=== PATIENT | male | born 1965 | race Caucasian/White ===

== ENCOUNTER 2019-01-04 22:23 | Observation (INO) | payer MEDICARE ==
[2019-01-05 02:17] LABS: Troponin I Less than 0.010 ng/mL (< 0.028)
[2019-01-05 04:14] VITALS: BMI 31.4
[2019-01-05] MEDS ORDERED: Sodium Chloride 0.9% 1,000 ML IV SCH (04:24)
[2019-01-05] MEDS ORDERED: Acetaminophen 325 MG TAB PO PRN ×2 (04:24→07:40)
[2019-01-05] MEDS ORDERED: Ondansetron ODT 4 MG TAB SL PRN (04:24)
[2019-01-05] MEDS ORDERED: Ondansetron PF 4 MG/2 ML Vial IVP PRN (04:24)
[2019-01-05] MEDS ORDERED: Ondansetron ODT 4 MG TAB PO PRN (07:40)
[2019-01-05] MEDS ORDERED: Zolpidem Tartrate 5 MG TAB PO PRN (07:40)
[2019-01-05 08:00] LABS: #Eosinphils 0.3 thou/uL (0.0-0.7); #Monocytes 0.8 thou/uL (0.11-0.59); #Neutrophils 6.5 thou/uL (1.40-6.50); %Basophils 0.5 % (0.0-1.0); %Eosinophils 3.5 % (0.0-10.0); %Lymphocytes 11.8 % (21.0-51.0); %Neutrophils 75.2 % (42.0-75.0); Hemoglobin 12.8 g/dL (14.0-18.0); Mean Corpuscular HGB CONC 33.6 g/dL (32.0-36.0); Mean Corpuscular Hemoglobin 29.2 pg (27.0-31.0); Mean Platelet Volume 7.7 fL (7.4-10.4); Platelet Count 259 thou/uL (130-400); RBC Distribution Width 12.1 % (11.5-14.5); Red Blood Cell (RBC) Count 4.37 mill/uL (4.70-6.10); White Blood Cell (WBC) Count 8.7 thou/uL (4.8-10.8)
[2019-01-05 08:07] LABS: ALT (SGPT) 8 U/L (8-55); AST (SGOT) 16 U/L (5-34); Albumin 3.5 g/dL (3.5-5.0); Alkaline Phosphatase 54 U/L (40-150); Anion Gap 17 mmol/L (10-20); BUN (Urea Nitrogen) 13 mg/dL (8.4-25.7); Bilirubin, Total 0.4 mg/dL (0.2-1.2); Calc. Creatinine Clearance 123 mL/min (70-130); Calcium 8.9 mg/dL (7.8-10.44); Carbon Dioxide 18 mmol/L (22-29); Chloride 108 mmol/L (98-107); Estimated GFR-MDRD 79; Globulin 2.7 g/dL (2.4-3.5); Glucose 77 mg/dL (70-105); Potassium 3.6 mmol/L (3.5-5.1); Protein, Total 6.2 g/dL (6.0-8.3); Sodium 139 mmol/L (136-145)
--- NOTE | 2019-01-05 08:20 | HP ---
PRIMARY CARE PROVIDER: Dar Doshi DO HISTORY OF PRESENT ILLNESS: The patient seen in [place] [facility], transferred to [facility] ER, referred to [facility]. Four days ago, he had severe abdominal pain, left him doubled over, went to the emergency room in [place]. He had a CT scan showed diverticulitis, was put on two antibiotics, Cipro 500 b.i.d. and Flagyl 500 t.i.d. He noted a bad taste in his mouth. He was on a bland diet for two days. The abdominal pain slowly got better. Two days ago, he noted to have a foul smelling black stool. It is remarkable that he did have one dose of Pepto-Bismol. He felt well on Friday with less pain. Last evening, he was hungry. He ate a chicken pie with some other food, developed pain in his abdomen, got dizzy, lightheaded, had a hot flash, noted his blood pressure was 94/64. He was nauseated. On getting up to go to the bathroom, he blacked out. He found himself on the floor in a pile of emesis, the food he had just eaten food. He called his girlfriend, went to the hospital, was seen in [place], transferred here for admission. PAST MEDICAL HISTORY: Pertinent for hypertension, gout, osteoarthritis. He takes colchicine and Naprosyn p.r.n. for his gout. He takes amlodipine 5 mg a day for his hypertension. He is on Cipro 500 b.i.d. and Flagyl 500 t.i.d. for his acute diverticulitis. PAST SURGICAL HISTORY: He has had arthroscopic surgery on his right knee. FAMILY HISTORY: His mother, grandmother, maternal grandmother had coronary artery disease. His grandmother, however, in her 90s. His mother is 72. He is single and has a girlfriend. Full code status. No designated next of kin. He quit smoking two years ago. Drinks no alcohol since the diagnosis of gout. He is on disability. REVIEW OF SYSTEMS: GENERAL: He had the lightheadedness, the fainting. He has had no fever or chills. EYES: He has had some blurred vision occasionally. No flashing lights, double vision. No tunnel vision. EAR, NOSE, AND THROAT: No ear pain or drainage. No nasal bleeding. No trouble swallowing. CARDIAC: No chest pain, orthopnea, or paroxysmal nocturnal dyspnea. RESPIRATION: No cough, wheezing or asthma. GASTROINTESTINAL: See present illness. GENITOURINARY: No hematuria, dysuria, nocturia. MUSCULOSKELETAL: He states his knees hurt all the time. No particular swelling or heat. Currently, he does have episodic gout attacks. NEUROLOGIC: No strokes, seizures, or focal weakness. PSYCHIATRIC: No anxiety or depression. SKIN: No bruising, bleeding or rash. HEME/LYMPH: No tender or swollen lymph nodes in his axilla, inguinal or cervical area. PHYSICAL EXAMINATION: GENERAL: Alert, oriented, cooperative, pleasant gentleman. VITAL SIGNS: Blood pressure 130/77, pulse 53, respirations 16, temperature 98.2. HEAD, EYES, EARS, NOSE, AND THROAT: Revealed pupils are equal, round, and reactive to light. Extraocular movements are intact. Sclerae are white. Tympanic membranes clear. Nose clear. Oral mucous membranes are wet. Dental hygiene is good. NECK: Supple without jugular venous distention, adenopathy or thyromegaly. CHEST: Clear to auscultation and percussion. HEART: Regular rate and rhythm. First and second heart sounds are clear. There are no murmurs or gallops. ABDOMEN: Soft. Bowel sounds are normal. There are no bruit. No mass. No tenderness. No hepatosplenomegaly. EXTREMITIES: Reveal no cyanosis, clubbing, or edema. PULSES: Carotid, radial, femoral, and dorsalis pedis pulses are palpable and symmetric. SKIN: Warm and dry without hemorrhage or rash. HEME/LYMPH: No petechial hemorrhages in his nailbeds or mucous membranes. No tender or swollen lymph nodes in axilla, inguinal, or cervical area. NEUROLOGICAL: Cranial nerves 2 through 12 are intact. Deep tendon reflexes are symmetric. Moves all extremities. IMAGING DATA: CT scan done 01/01/2019, shows sigmoid diverticulitis. Chest x-ray done 01/04/2019, no CHF, infiltrate, or cardiomegaly reviewed by me. LABORATORY DATA: Three troponins have been done for some reason, they were all normal in [place] on 01/04. CBC, white count 10.7, minimal neutrophilia, platelet count 263,000, hemoglobin 13.5. Comprehensive metabolic profile shows a potassium of 3.2, creatinine 1.33. Liver function tests normal. CARDIOVASCULAR DATA: EKG, regular sinus rhythm. No acute ST-T abnormality. ADMITTING DIAGNOSES: 1. Syncope. 2. Diverticulitis, on therapy. 3. Acute renal failure. 4. Hypertension. PLAN: 1. Clear liquids. 2. IV fluids. 3. CBC, comprehensive metabolic profile. 4. Stool for occult blood. 5. Carotid Doppler. 6. Monitor on telemetry. Continue p.o. antibiotics for diverticulitis. Hopefully, the patient can be evaluated and discharged in less than 24 hours, to be admitted on the observation basis. Job ID: [id number]
[2019-01-05] MEDS: Sodium Chloride 0.9% 1,000 ML IV SCH ×2 (09:18→16:42)
[2019-01-05] MEDS: metroNIDAZOLE 250 MG TAB PO SCH ×3 (09:18→20:41)
[2019-01-05] MEDS: Amlodipine 5 MG TAB PO SCH (09:18)
[2019-01-05] MEDS: Famotidine 20 MG TAB PO SCH ×2 (09:18→20:41)
--- NOTE | 2019-01-05 12:12 | ULT ---
ULTRASOUND CAROTID DOPPLER STANDARD: HISTORY: Syncope. COMPARISON: None. TECHNIQUE: Real-time, chacon scale, color Doppler, and spectral analysis of the extracranial, carotid, and vertebr al arteries was performed. FINDINGS: No elevated peak systolic velocities of the internal carotid arteries. Antegrade flow of both verteb ral arteries. IMPRESSION: No hemodynamically significant stenosis. POS: TPC
[2019-01-05] MEDS: Cipro 250 MG TAB PO SCH (19:30)
[2019-01-06] MEDS: Sodium Chloride 0.9% 1,000 ML IV SCH ×2 (00:42→11:31)
[2019-01-06] MEDS: Cipro 250 MG TAB PO SCH (06:33)
[2019-01-06 08:14] VITALS: BP 139/91; TEMP 98.4
[2019-01-06] MEDS: metroNIDAZOLE 250 MG TAB PO SCH (08:25)
[2019-01-06] MEDS: Famotidine 20 MG TAB PO SCH (08:25)
[2019-01-06] MEDS: Amlodipine 5 MG TAB PO SCH (08:25)
--- NOTE | 2019-01-06 12:13 | DIS ---
DATE OF ADMISSION: 01/05/2019 DATE OF DISCHARGE: 01/06/2019 PRIMARY CARE PROVIDER: Dar Doshi DO FINAL DIAGNOSES: 1. Syncope. 2. Diverticulitis. 3. Acute kidney failure, improved. 4. Hypertension. DISCHARGE MEDICATIONS: 1. Metronidazole 500 mg p.o. t.i.d. 2. Cipro 500 mg p.o. b.i.d. 3. Amlodipine 500 mg a day. ALLERGIES: CYMBALTA. DIET: As tolerated. CODE STATUS: Full. PENDING AT TIME OF DISCHARGE: Nothing. HOSPITAL COURSE: The patient referred to [facility] by [facility], was on p.o. medicines for diverticulitis when he had a severe abdominal spasm after eating a large amount of solid food. He fainted and was brought to the hospital. His carotid Doppler was unremarkable. CT of the abdomen and pelvis done on 01/01 showed sigmoid diverticulitis. His CBC was really unremarkable except for hemoglobin of 12.8. Chemistries are unremarkable except for a decreased CO2 of 18. His laboratory done in [place] revealed a creatinine 1.33. For some reason, he had four sets of cardiac enzymes done, which were normal. His creatinine at time of discharge is down to 0.09. The patient is doing well. Feels well. Vital signs are stable. His abdomen is benign. Cardiorespiratory exam is normal. He is desirous of going home. He is being discharged. No consultations. No procedures. To follow up with his PCP in one week. Job ID: [id number]
== END 2019-01-06 12:09 | disposition home or self-care (01) ==
LOC: ERS 22:23 → ERHOLD 01-05 00:38 → 2SW 01-05 03:30
PROVIDERS: ADMIT Hospitalist; ATTEND Hospitalist
DX: R55 Syncope and collapse (principal); R10.9 Unspecified abdominal pain; K57.32 Diverticulitis of large intestine without perforation or abscess without bleeding; N17.9 Acute kidney failure, unspecified; I10 Essential (primary) hypertension; M19.90 Unspecified osteoarthritis, unspecified site; M10.9 Gout, unspecified; Z79.899 Other long term (current) drug therapy; Z87.891 Personal history of nicotine dependence; Z88.8 Allergy status to other drugs, medicaments and biological substances
CPT/HCPCS: 80053; 82274; 84484 ×3; 85025; 93880; 96360; 96361 ×2; 99285; G0378 ×3; 36415

== ENCOUNTER 2023-09-12 21:39 | Observation (INO) | payer OTHER ==
[2023-09-12 23:57] VITALS: BMI 30.9
[2023-09-13] MEDS ORDERED: Morphine 4 MG/ML VIAL SLOW IVP SCH (03:00)
[2023-09-13] MEDS ORDERED: Acetaminophen 325 MG TAB PO PRN (03:05)
[2023-09-13] MEDS ORDERED: Ondansetron PF 4 MG/2 ML Vial IVP PRN (03:05)
[2023-09-13] MEDS ORDERED: Acetaminophen 650 MG Suppository PR PRN (03:05)
[2023-09-13] MEDS ORDERED: Ondansetron ODT 4 MG TAB PO PRN (03:05)
[2023-09-13] MEDS ORDERED: Sodium Chloride 0.9% 1,000 ML IV SCH (03:15)
[2023-09-13] MEDS ORDERED: Benzocaine 20% Spray 60 ML CAN PO SCH (03:45)
[2023-09-13 05:21] LABS: #Eosinphils 0.1 thou/uL (0.0-0.7); #Monocytes 0.6 thou/uL (0.11-0.59); #Neutrophils 6.7 thou/uL (1.40-6.50); %Basophils 0.4 % (0.0-1.0); %Eosinophils 1.7 % (0.0-10.0); %Lymphocytes 8.4 % (21.0-51.0); %Monocytes 6.8 % (0.0-10.0); %Neutrophils 82.3 % (42.0-75.0); Hematocrit 40.2 % (42.0-52.0); Hemoglobin 13.7 g/dL (14.0-18.0); Mean Corpuscular HGB CONC 34.1 g/dL (32.0-36.0); Mean Corpuscular Hemoglobin 29.3 pg (27.0-31.0); Mean Corpuscular Volume 85.9 fl (78.0-98.0); Platelet Count 218 10x3/uL (130-400); RBC Distribution Width 12.9 % (11.5-14.5); Red Blood Cell (RBC) Count 4.68 mill/uL (4.70-6.10); White Blood Cell (WBC) Count 8.2 10x3/uL (4.8-10.8)
[2023-09-13 05:45] LABS: Anion Gap 11 mmol/L (10-20); BUN (Urea Nitrogen) 17 mg/dL (8.4-25.7); Calc. Creatinine Clearance 112 mL/min (70-130); Calcium 8.7 mg/dL (7.8-10.44); Carbon Dioxide 24 mmol/L (22-29); Chloride 108 mmol/L (98-107); Estimated GFR 86; Glucose 108 mg/dL (70-105); Potassium 3.7 mmol/L (3.5-5.1); Sodium 139 mmol/L (136-145)
[2023-09-13] MEDS ORDERED: hydrALAZINE 20 MG/ML VIAL SLOW IVP PRN (08:20)
[2023-09-13] MEDS ORDERED: Nebivolol HCl 5 MG TAB PO SCH (11:41)
[2023-09-13] MEDS ORDERED: Ketorolac Tromethamine 30 MG/ML VIAL IVP PRN (11:42)
[2023-09-13] MEDS ORDERED: Amlodipine 5 MG TAB PO SCH (12:00)
[2023-09-13] MEDS: Senokot S 8.6-50 MG TAB PO SCH (20:40)
[2023-09-14 07:38] VITALS: BP 174/88; TEMP 98.1
[2023-09-14] MEDS ORDERED: Amlodipine 10 MG TAB PO SCH (09:00)
[2023-09-14] MEDS ORDERED: Polyethylene Glycol 3350 17 GM Packet PO SCH (09:00)
[2023-09-14] MEDS ORDERED: Amlodipine 5 MG TAB PO SCH ×2 (09:00)
[2023-09-14] MEDS: Senokot S 8.6-50 MG TAB PO SCH (09:35)
== END 2023-09-14 09:45 | disposition home or self-care (01) ==
LOC: UNDOADMOB 23:16 → SJJU 23:16
PROVIDERS: ADMIT Student in an Organized Health Care Education/Training Program; ATTEND Family Medicine
DX: K56.609 Unspecified intestinal obstruction, unspecified as to partial versus complete obstruction (principal); M10.9 Gout, unspecified; R00.1 Bradycardia, unspecified; I10 Essential (primary) hypertension; Z87.19 Personal history of other diseases of the digestive system; Z88.8 Allergy status to other drugs, medicaments and biological substances; Z98.890 Other specified postprocedural states; Z87.891 Personal history of nicotine dependence; Z79.899 Other long term (current) drug therapy
CPT/HCPCS: 74019; 80048; 85025; 96374; 96375; G0378 ×2; J0360; 36415; J2270; J7050